=== PATIENT | female | born 1990 | race Caucasian/White ===

== ENCOUNTER 2023-04-28 07:48 | Emergency (ER) | payer OTHER ==
[~2023-04-28] VITALS: Ht 152.4 cm; Wt 61.2 kg
[2023-04-28 07:52] VITALS: O2SAT 98
[2023-04-28] MEDS ORDERED: KETOROLAC TROMETHAMINE 30 MG/ML VIAL ONE (09:22)
[2023-04-28] MEDS ORDERED: KETOROLAC TROMETHAMINE 60 MG/2 ML VIAL IM ONE (09:30)
== END 2023-04-28 09:57 | disposition home or self-care (01) ==
LOC: FSED 07:51
DX: S00.83XA Contusion of other part of head, initial encounter (principal); R51.9 Headache, unspecified; W17.89XA Other fall from one level to another, initial encounter; Y92.89 Other specified places as the place of occurrence of the external cause; F41.9 Anxiety disorder, unspecified; F32.A Depression, unspecified
CPT/HCPCS: 70450; 81025; 99283; J1885